=== PATIENT | female | born 1985 | race Hispanic/Latino ===

== ENCOUNTER 2016-10-19 09:38 | Emergency (ER) | payer OTHER ==
[2016-10-19 09:38] VITALS: BMI 20.5
[2016-10-19 09:58] VITALS: BP 111/72; PULSE 99; RESP 18; TEMP 99; O2SAT 100
--- NOTE | 2016-10-19 10:50 | ED PDOC ---
HPI: Female Pain Time Seen by Provider: 10/19/16 09:54 Chief Complaint (Nursing): Female Genitourinary Chief Complaint (Provider): Female Genitourinary History Per: Patient History/Exam Limitations: no limitations Onset/Duration Of Symptoms: Days (x1) Current Symptoms Are (Timing): Still Present Additional Complaint(s): Gayatri Hutchinson is a 30 year old female with a past medical history of UTI and a past surgical history of a laparoscopic ovarian cyst removal presenting to the ED for suprapubic pain and burning during urination occurring since last night. The patient denies fever, vomiting, or back pain. She states she is sexually active. She denies any other medical complaints. PMD: Malia Olmedo MD Past Medical History Reviewed: Historical Data, Nursing Documentation, Vital Signs Vital Signs: Last Vital Signs Temp 99 F 10/19/16 09:55 Pulse 99 H 10/19/16 09:55 Resp 18 10/19/16 09:55 BP 111/72 10/19/16 09:55 Pulse Ox 100 10/19/16 09:55 - Medical History PMH: Anemia, Bronchitis Denies: Chronic Kidney Disease - Family History Family History: States: Unknown Family Hx - Social History Current smoker - smoking cessation education provided: No Ex-Smoker (has not smoked in the last 12 months): No Alcohol: None Drugs: Denies - Home Medications Home Medications: Ambulatory Orders Medication Instructions Recorded Alpha Lipoic Acid [Alpha Lipoic 1 tab PO DAILY 10/05/16 Acid] Cholecalciferol (Vitamin D3) 1 tab PO Q30D 10/05/16 [D3-50] Ferrous Sulfate [Feosol] 1 tab PO DAILY 10/05/16 Gabapentin [Neurontin] 1 tab PO HS 10/05/16 Turmeric Root Extract [Turmeric] 2 cap PO DAILY 10/05/16 Ubidecarenone [Co Q-10] 1 tab PO DAILY 10/05/16 Nitrofurantoin Macrocrystals 100 mg PO BID #14 cap 10/19/16 [Macrobid] - Allergies Allergies/Adverse Reactions: Allergies Allergy/AdvReac Type Severity Reaction Status Date / Time Penicillins Allergy RASH Verified 10/19/16 09:54 tramadol AdvReac NAUSEA Verified 10/19/16 09:54 tartrazine AdvReac RASH Uncoded 10/19/16 09:54 Review of Systems ROS Statement: Except As Marked, All Systems Reviewed And Found Negative Constitutional: Negative for: Fever Gastrointestinal: Negative for: Vomiting Genitourinary Female: Positive for: Dysuria, Pelvic Pain (suprapubic pain) Musculoskeletal: Negative for: Back Pain Physical Exam - Reviewed Nursing Documentation Reviewed: Yes Vital Signs Reviewed: Yes - Physical Exam Appears: Positive for: Well, Non-toxic, No Acute Distress Head Exam: Positive for: ATRAUMATIC, NORMAL INSPECTION, NORMOCEPHALIC Skin: Positive for: Normal Color, Warm, Dry Eye Exam: Positive for: EOMI, Normal appearance, PERRL Neck: Positive for: Normal, Painless ROM, Supple Cardiovascular/Chest: Positive for: Regular Rate, Rhythm, Chest Non Tender Respiratory: Positive for: Normal Breath Sounds. Negative for: Respiratory Distress Gastrointestinal/Abdominal: Positive for: Normal Exam, Bowel Sounds, Soft. Negative for: Tenderness Back: Positive for: Normal Inspection Extremity: Positive for: Normal ROM Neurologic/Psych: Positive for: Alert, Oriented (x3) - ECG O2 Sat by Pulse Oximetry: 100 (RA) Pulse Ox Interpretation: Normal Medical Decision Making Medical Decision Making: Time: 09:54 Impression: UTI Plan: * ED urine POC * ED urine dipstick POC * Urine Culture * Reevaluation Urine dip is consistent with UTI according to leuks and blood in urine. Dx: UTI non complicated Rx: Antibiotics and f/u with PMD Scribe Attestation: Documented by Beverly Snyder, acting as a scribe for Ashley Diaz MD. Provider Scribe Attestation: All medical record entries made by the Scribe were at my direction and personally dictated by me. I have reviewed the chart and agree that the record accurately reflects my personal performance of the history, physical exam, medical decision making, and the department course for this patient. I have also personally directed, reviewed, and agree with the discharge instructions and disposition. Disposition - Clinical Impression Clinical Impression: Urinary tract infection - Patient ED Disposition Is Patient to be Admitted: No Doctor Will See Patient In The: Office Counseled Patient/Family Regarding: Studies Performed, Diagnosis, Need For Followup - Disposition Referrals: Malia Olmedo APN [Family Provider] - Disposition: Routine/Home Disposition Time: 11:20 Condition: GOOD Additional Instructions: Take your medications as instructed. Follow up with your PCP in 2-3 days. Prescriptions: Nitrofurantoin Macrocrystals [Macrobid] 100 mg PO BID #14 cap Instructions: Urinary Tract Infection in Women (ED)
== END 2016-10-19 11:43 | disposition home or self-care (01) ==
LOC: H.ER 09:38
DX: N39.0 Urinary tract infection, site not specified (principal); Z87.891 Personal history of nicotine dependence; Z88.0 Allergy status to penicillin